=== PATIENT | male | born 1960 | race Caucasian/White ===

== ENCOUNTER 2021-07-16 21:32 | Emergency (ER) | payer MEDICAID ==
[~2021-07-16] VITALS: Ht 167.6 cm; Wt 95.3 kg
--- NOTE | 2021-07-16 21:33 | NUR ---
PT BIBA BLS Addendum: 07/16/21 at 2143 by JASMEET CORRECTION ALS
[2021-07-16 21:38] VITALS: BP 110/75
--- NOTE | 2021-07-17 00:10 | NUR ---
pt taken to bed via w/c with SECURITY SERVICES SPECIALIST
--- NOTE | 2021-07-17 00:17 | NUR ---
ERMD AT PT BEDSIDE
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
[2021-07-17 04:00] VITALS: BP 98/67
--- NOTE | 2021-07-17 04:00 | NUR ---
The patient's care was reviewed and supervised by Lacey Galindo RN.
--- NOTE | 2021-07-17 04:00 | NUR ---
Patient discharged with v/s stable. Written and verbal after care instructions given and explained. Patient verbalized understanding. PT WHEECHAIRED TO LOBBY PT UNABLE TO WALK DUE TO BANDAGES ON FEET/ All questions addressed prior to discharge. Advised to follow up with PMD.PT PROVIDED WITH HOMELESS PACKET/ ALCOHOL ABUSE PACKET , CLOTHING PROVIDED, FOOD PROVIDED.
== END 2021-07-17 04:00 | disposition home or self-care (01) ==
LOC: MED 21:32
DX: F10.129 Alcohol abuse with intoxication, unspecified (principal); E11.9 Type 2 diabetes mellitus without complications; M19.90 Unspecified osteoarthritis, unspecified site; Z98.890 Other specified postprocedural states; Z91.018 Allergy to other foods
CPT/HCPCS: 99285

== ENCOUNTER 2022-02-26 19:08 | Emergency (ER) | payer MEDICAID, OTHER ==
[~2022-02-26] VITALS: Ht 165.1 cm; Wt 77.1 kg
[2022-02-26 19:18] VITALS: BP 125/65
--- NOTE | 2022-02-26 19:21 | NUR ---
TO LOBBY VIA WHEELCHAIR, A/W BED
--- NOTE | 2022-02-26 22:23 | NUR ---
PT TO CHAIR B
--- NOTE | 2022-02-26 22:33 | NUR ---
Dr. Kaplan examining patient.
[2022-02-26] MEDS ORDERED: DOXYCYCLINE 100 MG in DEXTROSE 5% 100 ML IV STA (22:39)
[2022-02-26] MEDS ORDERED: NACL 0.9% 1,000 ML IV ONE (22:40)
[2022-02-26] MEDS ORDERED: KETOROLAC 15 MG/ML VIAL IVP ONE (22:40)
--- NOTE | 2022-02-26 23:02 | NUR ---
PT MOVED TO BED #5
[2022-02-26 23:04] LABS: BASOPHILS % (AUTO) 0.3 % (0.0-2.0); EOSINOPHILS # (AUTO) 0.1 K/uL (0-0.4); EOSINOPHILS % (AUTO) 1.9 % (0.0-4.0); HEMATOCRIT 38.9 % (36-52); HEMOGLOBIN 13.4 g/dL (12.0-18.0); LYMPHOCYTES % (AUTO) 22.1 % (20.5-51.1); MEAN CORPUSCULAR HEMOGLOBIN 30 pg (27-31); MEAN CORPUSCULAR HGB CONC 35 g/dL (33-37); MEAN CORPUSCULAR VOLUME 87.3 fL (80-94); MONOCYTES # (AUTO) 0.4 K/uL (0.8-1.0); MONOCYTES % (AUTO) 9.1 % (1.7-9.3); NEUTROPHILS % (AUTO) 66.6 % (42.2-75.2); PLATELET COUNT (AUTO) 214 K/uL (140-450); RED BLOOD CELL COUNT(AUTO) 4.45 MIL/uL (4.20-6.10); WHITE BLOOD COUNT (AUTO) 4.5 K/uL (4.8-10.8)
[2022-02-26 23:05] LABS: APPEARANCE,URINE CLEAR (CLEAR); BILIRUBIN,URINE NEGATIVE (NEGATIVE); BLOOD, URINE NEGATIVE (NEGATIVE); COLOR,URINE YELLOW (YELLOW); LEUKOCYTE ESTERASE ,URINE NEGATIVE (NEGATIVE); NITRITE, URINE NEGATIVE (NEGATIVE); PH,URINE 6.5 (5.0-9.0); UGLUCOSE NEGATIVE (NEGATIVE)
[2022-02-26] MEDS ORDERED: DOXYCYCLINE 100 MG VIAL IV ONE (23:05)
[2022-02-26 23:20] LABS: RBC,URINE NONE SEEN /HPF (0-5); WBC,URINE NONE SEEN /HPF (0-5)
[2022-02-26 23:29] LABS: ALBUMIN 3.5 g/dL (3.4-5.0); ANION GAP 13.5 (8-16); CARBON DIOXIDE 24.2 mmol/L (21-32); CREATININE 0.5 mg/dL (0.6-1.3); POTASSIUM 3.7 mmol/L (3.5-5.1); TOTAL BILIRUBIN 1.5 mg/dL (0.0-1.0)
[2022-02-27] MEDS ORDERED: CEPH-588 PO (01:09)
[2022-02-27] MEDS ORDERED: NAPR-54 PO (01:09)
[2022-02-27] MEDS ORDERED: DOXY-690 PO (01:10)
--- NOTE | 2022-02-27 01:52 | NUR ---
Patient discharged with v/s stable. Written and verbal after care instructions given and explained. Patient verbalized understanding. Ambulatory with steady gait. All questions addressed prior to discharge. Advised to follow up with PMD.
== END 2022-02-27 01:52 | disposition home or self-care (01) ==
LOC: MED 19:08
DX: L03.116 Cellulitis of left lower limb (principal); M79.661 Pain in right lower leg; E11.9 Type 2 diabetes mellitus without complications; Z79.4 Long term (current) use of insulin; Z79.899 Other long term (current) drug therapy; Z72.89 Other problems related to lifestyle; Z90.89 Acquired absence of other organs
CPT/HCPCS: 36415; 73590; 80053; 81001; 83605; 85025; 87040; 96365; 96375; 99284; G0482; J1885; J3490; J7060; Q0092

== ENCOUNTER 2022-02-27 18:52 | Emergency (ER) | payer OTHER ==
[~2022-02-27] VITALS: Ht 165.1 cm; Wt 79.4 kg
[~2022-02-27 18:52] MED LIST: CEPH-588 PO; DOXY-690 PO; NAPR-54 PO
[2022-02-27 18:59] VITALS: BP 147/86
--- NOTE | 2022-02-27 19:15 | NUR ---
Dr. Oscar examining patient.
[2022-02-27] MEDS ORDERED: MORPHINE SULFATE 4 MG/ML SYR IVP ONE (19:25)
[2022-02-27] MEDS ORDERED: KETOROLAC 60 MG/2 ML VIAL IM ONE (19:30)
--- NOTE | 2022-02-27 21:32 | NUR ---
RLE REDRESSED WITH DSD
[2022-02-28 02:00] VITALS: BP 147/86
--- NOTE | 2022-02-28 02:00 | NUR ---
Patient discharged with v/s stable. Written and verbal after care instructions given and explained. Patient verbalized understanding. Wheel Chair Assisted with to home. All questions addressed prior to discharge. Advised to follow up with PMD.
== END 2022-02-28 02:00 | disposition home or self-care (01) ==
LOC: MED 18:52
DX: L03.115 Cellulitis of right lower limb (principal); L03.116 Cellulitis of left lower limb; E11.9 Type 2 diabetes mellitus without complications; Z79.899 Other long term (current) drug therapy; Z90.49 Acquired absence of other specified parts of digestive tract; Z91.018 Allergy to other foods
CPT/HCPCS: 96372; 99283; J1885